=== PATIENT | male | born 1955 | race Caucasian/White ===

== ENCOUNTER 2020-04-10 15:01 | Emergency (ER) | payer MEDICARE, OTHER ==
[2020-04-10 15:34] LABS: BASOPHIL 1.1 % (0-2); EOSINOPHIL 2.1 % (0-7); HGB 13.9 g/dl (13.2-18.0); LYMPHOCYTE 17.3 % (15-48); MCH 26.9 pg (25.0-31.0); MCHC 33.1 g/dL (32.0-36.0); MCV 81.2 fL (78.0-100.0); MONOCYTE 8.6 % (0-12); NEUTROPHIL 70.3 % (41-80); NRBC 0; PLT 231 K/uL (150-400); RBC 5.17 M/uL (4.70-6.00); RDW 14.4 % (11.5-14.0); WBC 7.1 K/uL (4.0-10.5)
[2020-04-10 15:38] LABS: INR 1.06 (0.9-1.2); PROTHROMBIN TIME 13.1 SECONDS (11.4-13.6); PTT 28.1 SECONDS (22.2-34.7)
[2020-04-10 15:44] LABS: ALBUMIN 3.6 g/dL (3.4-5.0); BILIRUBIN - TOTAL 0.3 mg/dL (0.2-1.0); POTASSIUM 3.1 mmol/L (3.5-5.1); TOTAL PROTEIN 7.6 g/dL (6.4-8.2)
== END 2020-04-10 22:06 | disposition other institution (70) ==
LOC: FER 15:01
PROVIDERS: Emergency Medicine
DX: I20.0 Unstable angina (principal); I10 Essential (primary) hypertension; E11.9 Type 2 diabetes mellitus without complications; Z20.822 Contact with and (suspected) exposure to COVID-19
CPT/HCPCS: 36415; 70450; 71045; 80053; 84484; 85025; 85610; 85730; 93005; J1644; U0002